=== PATIENT | female | born 1940 | race Caucasian/White ===

== ENCOUNTER 2018-08-29 07:57 | Inpatient (IN) | payer MEDICARE ==
[~2018-08-29] VITALS: Ht 160 cm; Wt 83.0 kg
[~2018-08-29 07:57] MED LIST: AMLO5TAB4 PO; ASPI-612 PO; LISI20TA PO; SIMV20TA PO
--- NOTE | 2018-08-29 08:21 | RAD ---
PQRS Compliance Statement: One or more of the following individualized dose reduction techniques were utilized for this examination: 1. Automated exposure control 2. Adjustment of the mA and/or kV according to patient size 3. Use of iterative reconstruction technique CT head without contrast 08/29/2018 7:56 AM INDICATION: Code stroke, altered mental status COMPARISON: CT head November 20, 2008, MRI brain June 13, 2014 TECHNIQUE: Multiple axial CT images of the head were obtained from skull base through the vertex without intravenous contrast. FINDINGS: Head: Ventricles, sulci and basal cisterns are prominent compatible with moderate generalized cerebral volume loss. There is no hydrocephalus. Low-attenuation in the periventricular white matter is suggestive of chronic small vessel ischemic changes. There is hypoattenuation involving the large territory of the right middle cerebral artery predominantly involving the right frontal lobe including the right frontal operculum and insula. Within this area of hypoattenuation, there is cortically based high attenuation with calcification may represent areas of laminar necrosis or prior petechial microhemorrhage. There is no acute intracranial hemorrhage. There is no mass, mass effect or midline shift. Posterior fossa is normal in appearance. Visualized portions of the orbits are normal. Paranasal sinuses are well aerated. Mastoid air cells are well aerated. Scalp and calvaria are normal. IMPRESSION: 1. There is a remote large territory of right middle cerebral artery infarct with associated dystrophic calcification which may be associated with prior microhemorrhage or laminar necrosis. Acute on chronic ischemia is a differential consideration. 2. Moderate generalized cerebral volume loss. Low-attenuation in the periventricular white matter is suggestive of chronic small vessel ischemic changes. FOR INTERNAL CODING PURPOSES Critical result: Findings discussed with JOYCE BAUM at 08/29/2018 8:17 AM. RESULT CODE: (C) Electronically signed by: Radha Kerr MD (08/29/2018 8:17 AM) [id number]
[2018-08-29 08:31] LABS: HEMATOCRIT 36.4 % (36.0-47.0); HEMOGLOBIN 11.9 g/dL (12.0-15.5); RED BLOOD COUNT 4.11 x10^6/uL (3.50-5.40); RED CELL DISTRIBUTION WIDTH 14.1 % (11.5-14.5); WHITE BLOOD COUNT 9.4 x10^3/uL (4.0-11.0)
[2018-08-29 08:41] LABS: CALCIUM 9.5 mg/dL (8.5-10.1); CREATININE 1.1 mg/dL (0.6-1.0); GFR 48.3; POTASSIUM 4.3 mmol/L (3.5-5.1)
[2018-08-29 08:42] LABS: PROTHROMBIN TIME PATIENT 14.4 SEC (11.7-14.0)
--- NOTE | 2018-08-29 09:37 | PHYS DOC ---
Past Medical History Past Medical History: Anxiety, CVA, Dementia, Hypertension, Renal Failure, UTI , Other Additional Past Medical Histor: DYSPHAGIA Past Surgical History: Other Additional Past Surgical Histo: UNKNOWN SURGICAL HISTORY Alcohol Use: None Drug Use: None Adult General Chief Complaint Chief Complaint: NEURO SYMPTOMS/DEFICITS HPI HPI 78-year-old female group home resident with previous stroke with residual left -sided weakness presents after was noted that she had slurred speech difficulty swallowing and some right arm weakness approximately 745 this morning. This was noted by group home staff as being something unusual for the patient. The patient states she has no idea why she is here. He does admit that she had some weakness on the right side which is new for her that this has since resolved according to the patient. She does state that she is still having difficulty swallowing even her own secretions. She denies any headache. Yes[] Review of Systems Review of Systems Constitutional: Denies fever or chills [] Eyes: Denies change in visual acuity, redness, or eye pain [] HENT: Denies nasal congestion or sore throat [] Respiratory: Denies cough or shortness of breath [] Cardiovascular: No additional information not addressed in HPI [] GI: Denies abdominal pain, nausea, vomiting, bloody stools or diarrhea [] : Denies dysuria or hematuria [] Musculoskeletal: Denies back pain or joint pain [] Integument: Denies rash or skin lesions [] Neurologic: Denies headache, focal weakness or sensory changes [] Endocrine: Denies polyuria or polydipsia [] All other systems were reviewed and found to be within normal limits, except as documented in this note. Current Medications Current Medications Current Medications Medications (Trade) Dose Ordered Sig/Melisa Start Time Stop Time Status Last Admin Dose Admin Sodium Chloride 1,000 ml @ 125 mls/hr Q8H 08/29/18 09:47 08/30/18 09:46 Allergies Allergies Allergies Coded Allergies Type Severity Reaction Last Updated Verified Ebdwdhi-Qji-Wmd Reductase Inhibitor Adverse Reaction Intermediate Weakness 06/14 Yes rosuvastatin Adverse Reaction Mild Stomach upset 06/14/14 Yes Physical Exam Physical Exam Constitutional: Frail, elderly acute on chronically ill but nontoxic[] HENT: Normocephalic, atraumatic, bilateral external ears normal, oropharynx moist, no oral exudates, nose normal. [] Eyes: PERRLA, EOMI, conjunctiva normal, no discharge. [] Neck: Normal range of motion, no tenderness, supple, no stridor. [] Cardiovascular:Heart rate regular rhythm, no murmur [] Lungs & Thorax: Bilateral breath sounds clear to auscultation [] Abdomen: Bowel sounds normal, soft, no tenderness, no masses, no pulsatile masses. [] Skin: Warm, dry, no erythema, no rash. [] Back: No tenderness, no CVA tenderness. [] Extremities: No tenderness, no cyanosis, no clubbing, ROM intact, no edema. [] Neurologic: Left hemiparesis, slurred speech[] Psychologic: Affect normal, judgement normal, mood normal. [] Current Patient Data Vital Signs Vital Signs Date Time Temp Pulse Resp B/P (MAP) Pulse Ox O2 Delivery O2 Flow Rate FiO2 08/29/18 07:57 97.9 88 18 146/70 (95) 94 Room Air 97.9 Lab Values Laboratory Tests Test 08/29/18 08:10 08/29/18 08:12 White Blood Count 9.4 x10^3/uL (4.0-11.0) Red Blood Count 4.11 x10^6/uL (3.50-5.40) Hemoglobin 11.9 g/dL (12.0-15.5) L Hematocrit 36.4 % (36.0-47.0) Mean Corpuscular Volume 89 fL (79-100) Mean Corpuscular Hemoglobin 29 pg (25-35) Mean Corpuscular Hemoglobin Concent 33 g/dL (31-37) Red Cell Distribution Width 14.1 % (11.5-14.5) Platelet Count 349 x10^3/uL (140-400) Prothrombin Time 14.4 SEC (11.7-14.0) H Prothrombin Time INR 1.2 (0.8-1.1) H PTT 29 SEC (24-38) Sodium Level 144 mmol/L (136-145) Potassium Level 4.3 mmol/L (3.5-5.1) Chloride Level 105 mmol/L (98-107) Carbon Dioxide Level 26 mmol/L (21-32) Anion Gap 13 (6-14) Blood Urea Nitrogen 25 mg/dL (7-20) H Creatinine 1.1 mg/dL (0.6-1.0) H Estimated GFR (Cockcroft-Gault) 48.3 Glucose Level 122 mg/dL (70-99) H Calcium Level 9.5 mg/dL (8.5-10.1) Troponin I Quantitative < 0.017 ng/mL (0.000-0.055) Glucose (Fingerstick) 109 mg/dL (70-99) H Laboratory Tests 08/29/18 08:10 Laboratory Tests 08/29/18 08:10 EKG EKG [] Interpretation Time: EKG: Normal sinus rhythm rate of [address]-T changes Radiology/Procedures Radiology/Procedures [] Impressions: PROCEDURE: CT CODE STROKE HEAD WO PQRS Compliance Statement: One or more of the following individualized dose reduction techniques were utilized for this examination: 1. Automated exposure control 2. Adjustment of the mA and/or kV according to patient size 3. Use of iterative reconstruction technique CT head without contrast 08/29/2018 7:56 AM INDICATION: Code stroke, altered mental status COMPARISON: CT head November 20, 2008, MRI brain June 13, 2014 TECHNIQUE: Multiple axial CT images of the head were obtained from skull base through the vertex without intravenous contrast. FINDINGS: Head: Ventricles, sulci and basal cisterns are prominent compatible with moderate generalized cerebral volume loss. There is no hydrocephalus. Low-attenuation in the periventricular white matter is suggestive of chronic small vessel ischemic changes. There is hypoattenuation involving the large territory of the right middle cerebral artery predominantly involving the right frontal lobe including the right frontal operculum and insula. Within this area of hypoattenuation, there is cortically based high attenuation with calcification may represent areas of laminar necrosis or prior petechial microhemorrhage. There is no acute intracranial hemorrhage. There is no mass, mass effect or midline shift. Posterior fossa is normal in appearance. Visualized portions of the orbits are normal. Paranasal sinuses are well aerated. Mastoid air cells are well aerated. Scalp and calvaria are normal. IMPRESSION: 1. There is a remote large territory of right middle cerebral artery infarct with associated dystrophic calcification which may be associated with prior microhemorrhage or laminar necrosis. Acute on chronic ischemia is a differential consideration. 2. Moderate generalized cerebral volume loss. Low-attenuation in the periventricular white matter is suggestive of chronic small vessel ischemic changes. Course & Med Decision Making Course & Med Decision Making Pertinent Labs and Imaging studies reviewed. (See chart for details) [ED course: Evaluation reveals a 78-year-old female with new neurologic deficits. She had some right sided weakness today which has since resolved however her speech is still slurred and she still having a difficult time swallowing. I spoke with the hospitalist agreed to accept patient for admission. We will admit to telemetry and consult neurology.] Dragon Disclaimer Dragon Disclaimer This electronic medical record was generated, in whole or in part, using a voice recognition dictation system. Departure Departure Impression: Primary Impression: CVA (cerebral vascular accident) Disposition: 09 ADMITTED INPATIENT Admitting Physician: Sven Cole Condition: GUARDED Referrals: NON,STAFF (PCP) Problem Qualifiers Primary Impression: CVA (cerebral vascular accident) CVA mechanism: unspecified Qualified Codes: I63.9 - Cerebral infarction, unspecified JOYCE BAUM DO Aug 29, 2018 09:37
[2018-08-29 09:56] LABS: BILIRUBIN,URINE NEGATIVE (NEG); CLARITY,URINE CLEAR; COLOR,URINE YELLOW; NITRITE,URINE NEGATIVE (NEG); PH,URINE 6.5; PROTEIN,URINE 30 mg/dL (NEG-TRACE); UROBILINOGEN,URINE 0.2 mg/dL (0.2 mg/dL)
[2018-08-29] MEDS: IV NORMAL SALINE 1000ML BAG 1,000 ML IV SCH ×2 (10:07→17:47)
[2018-08-29 10:11] LABS: SQUAMOUS EPITHELIAL CELL,UR MOD /LPF
[2018-08-29 10:13] LABS: AMORPHOUS SEDIMENT,UR PRESENT /HPF; BACTERIA,URINE FEW /HPF (0-FEW); WBC,URINE >40 /HPF (0-4)
[2018-08-29 11:05] VITALS: BP 154/77
[2018-08-29] MEDS ORDERED: ACET325T9 PO ×2 (11:31→11:55)
[2018-08-29] MEDS ORDERED: ATORVASTATIN CA80 MG PO (11:33)
[2018-08-29] MEDS ORDERED: ASPI325T8 PO (11:33)
[2018-08-29] MEDS ORDERED: MULT-697 PO (11:51)
[2018-08-29] MEDS ORDERED: POLY17PO29 PO (11:51)
[2018-08-29] MEDS ORDERED: HYDR-2867 PO ×2 (11:51)
[2018-08-29] MEDS ORDERED: NYST15PO9 TP (11:51)
[2018-08-29] MEDS ORDERED: QUET25TA5 PO (11:51)
[2018-08-29] MEDS ORDERED: NITR100C62 PO (11:51)
[2018-08-29] MEDS ORDERED: MAGN400O7 PO (11:51)
[2018-08-29] MEDS ORDERED: CARV25TA PO (11:51)
[2018-08-29] MEDS ORDERED: SENN8.6T99 PO (11:55)
[2018-08-29] MEDS ORDERED: VENL75TA PO (11:55)
--- NOTE | 2018-08-29 12:39 | EKG ---
[facility] [address] [place] [address] Test Date: 2018-08-29 Test Time: 08:52:18 Pat Name: LANI NUGENT Department: Room: [facility] Gender: F [employer]: : 1940 Requested By: JOYCE BAUM Order Number: [id number] Reading MD: Phil Pathak MD Measurements Intervals [place] Rate: 86 P: 46 [place]: 176 QRS: 7 QRSD: 82 T: 31 QT: 362 QTc: 436 Interpretive Statements SINUS RHYTHM Electronically Signed On 08-30-2018 10:46:11 CDT by Phil Pathak MD
--- NOTE | 2018-08-29 12:45 | RAD ---
EXAMINATION: Magnetic resonance imaging (MRI) of the brain and brainstem without contrast 08/29/2018 11:00 AM HISTORY: Slurred speech, left-sided weakness. TECHNIQUE: Multiplanar multi-weighted MRI of the brain and brainstem was performed without intravenous contrast using the general brain protocol. Limited evaluation due to patient discomfort. Imaging terminated prematurely with inclusion of diffusion weighted images and sagittal T1-weighted images. COMPARISON: None available. FINDINGS: There is a large area of encephalomalacia involving the right frontal lobe with T1 intrinsic signal hyperintensity suggestive of laminar necrosis. There is diffusion signal hyperintensity along the superior margin with corresponding low ADC signal. Findings are most suggestive of acute on chronic ischemia. Ventricles, sulci and basal cisterns are prominent compatible with generalized cerebral volume loss. IMPRESSION: There is acute on chronic ischemia involving the superior right frontal lobe. There is a large territory remote infarct with laminar necrosis involving the right frontal lobe. Critical results were discussed with the patient's nurse, Tammie, at 12:40 PM on 08/29/[address] Kerr. Electronically signed by: Radha Kerr MD (08/29/2018 12:42 PM) [facility]
[2018-08-29] MEDS: CLOPIDOGREL BISULFATE 75 MG TABLET PO SCH (13:00)
[2018-08-29] MEDS ORDERED: CLOPIDOGREL BISULFATE 75 MG TABLET PO ONE (13:00)
--- NOTE | 2018-08-29 13:11 | PDOC2 ---
NEUROLOGY CONSULT Date of Admission Date of Admission DATE: 08/29/18 TIME: 12:57 Reason for Consult Reason for Consult: Acute right superior frontal lobe infarct. Right UE weakness. Increased weakness in left side. Slurred speech. 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 Chronic left hemiplegia. UTI. HTN. HLD. GISELLE. Obesity. RECOMMENDATIONS/PLAN: Plavix 75 mg daily, 1st dose on 08/29/18. Statin HS. Brain MRI w/o contrast performed finding as above. Carotid A US + Doppler. Echo + Bubble study. Lab: see orders. OT/PT. Rehab. HISTORY OF THE PRESENT ILLNESS: 78-y-old female patient with longstanding history of HTN and other medical diseases had a stroke about a year ago with consequence of chronic left side hemiplegia. She stated she had another stroke afterwords with right right UE weakness. She developed symptoms of slurred speech and right side weakness after awaking in the morning today noted by her nursing facility staff to be brought to the ER of [facility]. Neurology was requested for consultation around 11:00 am and she was found to have a new stroke in the right frontal lobe this time. PAST MEDICAL HISTORY: See above. PAST SURGERY HISTORY: Hysterectomy. SOCIAL HISTORY: Denies substance abuse. REVIEW OF SYSTEMS: Constitutional: No fever, chills, malnutrition, weight loss, night sweats, cachexia. Head: No traumatic brain or head injury. Skin: No edema, or rash. Ear: No infection, tinnitus. Eyes: No vision loss, color blindness. Nose: No bleeding or purulent discharges. Neck: No injury, lymph note enlargement. Cardiac: HTN. Pulmonary: No hemoptysis, dyspnea. GI: No melena, hematochezia. Urinary/genital: UTI. Endocrinologic: Obesity. Skeletomuscular: No muscular atrophy, deformity. Neurological: see HP. Psychiatric: Denies drug use/abuse. Otherwise, not [id number] review of systems. PHYSICAL EXAMINATION: General appearance is in subacute distress. HEENT: Normocephalic and nontraumatic. Eyes, nose, ears, and throat are unremarkable. Neck is supple. No lymphadenopathy. No bruits are heard over the carotid artery. No crepitus. Cardiovascular: S1, S2, regular rate and rhythm. Pulmonary: Clear to auscultation bilaterally. Abdomen: Bowel sounds are positive. Abdomen is soft, nontender, and nondistended. Extremities: No rash, lesions, or edema. Restriction of range of motion on the left side. NEUROLOGICAL EXAMINATION: Awake. Speech seemed improved. Oriented partially to time, but knew place and person. PERRL. EOMI. CN: Left VII palsy, chronic. Muscle tone: increased in left UE and LE. Muscle strength: 2- left side. 4+ right side. DTR: 2 Plantar reflex: Extensor response in left foot. Gait: Unable to walk. Sensory exam: decreased in left side.. No cerebellar signs elicited in right hand, but unable to perform in left hand due to chronic weakness. Current Medications Current Medications Current Medications Sodium Chloride 1,000 ml @ 125 mls/hr Q8H IV Last administered on 08/29/18at 10 :07; Start 08/29/18 at 09:47; Stop 08/30/18 at 09:46 Clopidogrel Bisulfate (Plavix) 75 mg 1X ONCE PO ; Start 08/29/18 at 13:00; Stop 08/29/18 at 13:01 Clopidogrel Bisulfate (Plavix) 75 mg DAILYWBKFT PO ; Start 08/29/18 at 13:00 Active Scripts Active Norvasc (Amlodipine Besylate) 5 Mg Tablet 10 Mg PO DAILY Reported Venlafaxine Hcl 75 Mg Tablet 75 Mg PO DAILY Tylenol (Acetaminophen) 325 Mg Tablet 1 Tab PO BID Senokot (Sennosides) 8.6 Mg Tablet 1 Tab PO TID Seroquel (Quetiapine Fumarate) 25 Mg Tablet 12.5 Mg PO BID Nystatin 15 Gm Powder 1 Opal TP PRN Q12HR PRN Miralax (Polyethylene Glycol 3350) 17 Gm Powd.pack 1 Packet PO DAILY Milk Of Magnesia (Magnesium Hydroxide) 400 Mg/5 Ml Oral.susp 2,400 Mg PO PRN DAILY PRN Macrobid 100 Mg Capsule (Nitrofurantoin Monohyd/M-Cryst) 100 Mg Capsule 1 Cap PO DAILY Hydralazine Hcl 10 Mg Tablet 1 Tab PO PRN Q8HRS PRN Hydralazine Hcl 10 Mg Tablet 1 Tab PO QEVNG Centrum Adults Tablet (Multivitamin/Iron/Folic Acid) 1 Each Tablet 1 Each PO DAILY Coreg (Carvedilol) 25 Mg Tablet 25 Mg PO BIDWMEALS Atorvastatin Calcium 80 Mg Tablet 80 Mg PO HS Aspirin 325 Mg Tablet 1 Tab PO DAILY Tylenol (Acetaminophen) 325 Mg Tablet 2 Tab PO PRN Q6HRS PRN Allergies Allergies: Allergies Coded Allergies Type Severity Reaction Last Updated Verified Cdifnwa-Lxx-Mll Reductase Inhibitor Adverse Reaction Intermediate Weakness 06/14 Yes rosuvastatin Adverse Reaction Mild Stomach upset 06/14/14 Yes ROS Review of System The patient denies any associated fevers, chills, headache, ear pain, rhinorrhea , sore throat, stiff neck, productive cough, chest pain, shortness of breath, back or flank pain, abdominal pain, nausea, vomiting, diarrhea, constipation, dysuria, rash, numbness, weakness, tingling, incontinence, difficulty ambulating, or diaphoresis. Physical Exam Physical Exam General: Well developed, well nourished, no acute distress, well appearing HEENT: Pupils equally round and reactive to light, EOMI, no discharge, normal conjunctiva Neck: Supple, no nuchal rigidity, no JVD, trachea midline, no tenderness Cardiac: RRR, no murmurs, no gallops, no rubs Chest/Lungs: CTAB, no wheeze, no rhonchi, no crackles Abdomen: soft, non-distended, no guarding, no peritoneal signs, non-tender Back: No tenderness Extremities: no edema, pulses intact, non-tender,capillary refill <3 sec bilateral upper and lower extremities, Neuro: Alert and oriented x 4, no focal deficits, normal speech Vitals Vitals: Vital Signs Date Time Temp Pulse Resp B/P (MAP) Pulse Ox O2 Delivery O2 Flow Rate FiO2 08/29/18 11:05 97.7 90 20 154/77 (102) 94 Room Air 97.7 Labs Labs Laboratory Tests Test 08/29/18 08:10 08/29/18 08:12 08/29/18 08:26 White Blood Count 9.4 x10^3/uL (4.0-11.0) Red Blood Count 4.11 x10^6/uL (3.50-5.40) Hemoglobin 11.9 g/dL (12.0-15.5) Hematocrit 36.4 % (36.0-47.0) Mean Corpuscular Volume 89 fL (79-100) Mean Corpuscular Hemoglobin 29 pg (25-35) Mean Corpuscular Hemoglobin Concent 33 g/dL (31-37) Red Cell Distribution Width 14.1 % (11.5-14.5) Platelet Count 349 x10^3/uL (140-400) Prothrombin Time 14.4 SEC (11.7-14.0) Prothromb Time International Ratio 1.2 (0.8-1.1) Activated Partial Thromboplast Time 29 SEC (24-38) Sodium Level 144 mmol/L (136-145) Potassium Level 4.3 mmol/L (3.5-5.1) Chloride Level 105 mmol/L (98-107) Carbon Dioxide Level 26 mmol/L (21-32) Anion Gap 13 (6-14) Blood Urea Nitrogen 25 mg/dL (7-20) Creatinine 1.1 mg/dL (0.6-1.0) Estimated GFR (Cockcroft-Gault) 48.3 Glucose Level 122 mg/dL (70-99) Calcium Level 9.5 mg/dL (8.5-10.1) Troponin I Quantitative < 0.017 ng/mL (0.000-0.055) Glucose (Fingerstick) 109 mg/dL (70-99) Urine Collection Type Unknown Urine Color Yellow Urine Clarity Clear Urine pH 6.5 Urine Specific [place] 1.015 Urine Protein 30 mg/dL (NEG-TRACE) Urine Glucose (UA) Negative mg/dL (NEG) Urine Ketones (Stick) Negative mg/dL (NEG) Urine Blood Trace (NEG) Urine Nitrite Negative (NEG) Urine Bilirubin Negative (NEG) Urine Urobilinogen Dipstick 0.2 mg/dL (0.2 mg/dL) Urine Leukocyte Esterase Large (NEG) Urine RBC 1-2 /HPF (0-2) Urine WBC >40 /HPF (0-4) Urine Squamous Epithelial Cells Mod /LPF Urine Amorphous Sediment Present /HPF Urine Bacteria Few /HPF (0-FEW) Laboratory Tests Test 08/29/18 08:10 08/29/18 08:12 08/29/18 08:26 White Blood Count 9.4 x10^3/uL (4.0-11.0) Red Blood Count 4.11 x10^6/uL (3.50-5.40) Hemoglobin 11.9 g/dL (12.0-15.5) Hematocrit 36.4 % (36.0-47.0) Mean Corpuscular Volume 89 fL (79-100) Mean Corpuscular Hemoglobin 29 pg (25-35) Mean Corpuscular Hemoglobin Concent 33 g/dL (31-37) Red Cell Distribution Width 14.1 % (11.5-14.5) Platelet Count 349 x10^3/uL (140-400) Prothrombin Time 14.4 SEC (11.7-14.0) Prothromb Time International Ratio 1.2 (0.8-1.1) Activated Partial Thromboplast Time 29 SEC (24-38) Sodium Level 144 mmol/L (136-145) Potassium Level 4.3 mmol/L (3.5-5.1) Chloride Level 105 mmol/L (98-107) Carbon Dioxide Level 26 mmol/L (21-32) Anion Gap 13 (6-14) Blood Urea Nitrogen 25 mg/dL (7-20) Creatinine 1.1 mg/dL (0.6-1.0) Estimated GFR (Cockcroft-Gault) 48.3 Glucose Level 122 mg/dL (70-99) Calcium Level 9.5 mg/dL (8.5-10.1) Troponin I Quantitative < 0.017 ng/mL (0.000-0.055) Glucose (Fingerstick) 109 mg/dL (70-99) Urine Collection Type Unknown Urine Color Yellow Urine Clarity Clear Urine pH 6.5 Urine Specific [place] 1.015 Urine Protein 30 mg/dL (NEG-TRACE) Urine Glucose (UA) Negative mg/dL (NEG) Urine Ketones (Stick) Negative mg/dL (NEG) Urine Blood Trace (NEG) Urine Nitrite Negative (NEG) Urine Bilirubin Negative (NEG) Urine Urobilinogen Dipstick 0.2 mg/dL (0.2 mg/dL) Urine Leukocyte Esterase Large (NEG) Urine RBC 1-2 /HPF (0-2) Urine WBC >40 /HPF (0-4) Urine Squamous Epithelial Cells Mod /LPF Urine Amorphous Sediment Present /HPF Urine Bacteria Few /HPF (0-FEW) CHASE MIRELES MD Aug 29, 2018 13:11
--- NOTE | 2018-08-29 13:12 | PDOC1 ---
History and Physical Date of Admission Date of Admission DATE: 08/29/18 TIME: 13:00 Identification/Chief Complaint Chief Complaint Left-sided weakness Problems: (1) CVA (cerebral vascular accident) History of Present Illness History of Present Illness This is a 78-year-old white female who presented to the ER with left-sided weakness she has a previous history of right-sided weakness for many years patient is a poor historian. She was actually found by her halfway staff with left-sided weakness rated 9 out of 10 and she has associated anxiety. I discussed case with ER physician recommended patient consult neurology Past Medical History Past Medical History Anxiety previous stroke with right hemiplegia and dementia hypertension renal failure UTI dysphagia Cardiovascular: Other Pulmonary: Other GI: GI bleed Renal/: Chronic renal insuff Past Surgical History Past Surgical History: Hysterectomy Family History Family History: Cancer, Coronary Artery Disease, Other Social History ALCOHOL: none Drugs: None Current Problem List Problem List Problems Medical Problems: (1) CVA (cerebral vascular accident) Status: Acute Current Medications Current Medications Current Medications Sodium Chloride 1,000 ml @ 125 mls/hr Q8H IV Last administered on 08/29/18at 10 :07; Start 08/29/18 at 09:47; Stop 08/30/18 at 09:46 Clopidogrel Bisulfate (Plavix) 75 mg 1X ONCE PO ; Start 08/29/18 at 13:00; Stop 08/29/18 at 13:01 Clopidogrel Bisulfate (Plavix) 75 mg DAILYWBKFT PO ; Start 08/29/18 at 13:00 Active Scripts Active Norvasc (Amlodipine Besylate) 5 Mg Tablet 10 Mg PO DAILY Reported Venlafaxine Hcl 75 Mg Tablet 75 Mg PO DAILY Tylenol (Acetaminophen) 325 Mg Tablet 1 Tab PO BID Senokot (Sennosides) 8.6 Mg Tablet 1 Tab PO TID Seroquel (Quetiapine Fumarate) 25 Mg Tablet 12.5 Mg PO BID Nystatin 15 Gm Powder 1 Opal TP PRN Q12HR PRN Miralax (Polyethylene Glycol 3350) 17 Gm Powd.pack 1 Packet PO DAILY Milk Of Magnesia (Magnesium Hydroxide) 400 Mg/5 Ml Oral.susp 2,400 Mg PO PRN DAILY PRN Macrobid 100 Mg Capsule (Nitrofurantoin Monohyd/M-Cryst) 100 Mg Capsule 1 Cap PO DAILY Hydralazine Hcl 10 Mg Tablet 1 Tab PO PRN Q8HRS PRN Hydralazine Hcl 10 Mg Tablet 1 Tab PO QEVNG Centrum Adults Tablet (Multivitamin/Iron/Folic Acid) 1 Each Tablet 1 Each PO DAILY Coreg (Carvedilol) 25 Mg Tablet 25 Mg PO BIDWMEALS Atorvastatin Calcium 80 Mg Tablet 80 Mg PO HS Aspirin 325 Mg Tablet 1 Tab PO DAILY Tylenol (Acetaminophen) 325 Mg Tablet 2 Tab PO PRN Q6HRS PRN Allergies Allergies: Coded Allergies: Jcnnwiy-Jso-Tsy Reductase Inhibitor (Verified Adverse Reaction, Intermediate, Weakness, 06/14/14) rosuvastatin (Verified Adverse Reaction, Mild, Stomach upset, 06/14/14) ROS Review of System REVIEW OF SYSTEMS: GENERAL: Denies weakness SKIN: No bruising, hair changes or rashes. EYES: No blurred, double or loss of vision. NOSE AND THROAT: No history of nosebleeds, hoarseness or sore throat. HEART: No history of palpitations, chest pain or shortness of breath on exertion. LUNGS: Denies cough, hemoptysis, wheezing or shortness of breath. GASTROINTESTINAL: Denies changes in appetite, nausea, vomiting, diarrhea or constipation. GENITOURINARY: No history of frequency, urgency, hesitancy or nocturia. NEUROLOGIC: Complains of new left-sided weakness. PSYCHIATRIC: No history of panic, anxiety or depression. ENDOCRINE: No history of heat or cold intolerance, polyuria or polydipsia. EXTREMITIES: Denies muscle weakness, joint pain, pain on walking or stiffness. Physical Exam Physical Exam PHYSICAL EXAMINATION: VITAL SIGNS: Temperature afebrile, pulse 72, respirations 16, blood pressure 130/60, O2 sat 100%. GENERAL: She is alert, cooperative. HEART: Distant S1, S2. Without murmurs LUNGS: Clear to auscultation no rhonchi ABDOMEN: Soft. Nontender no organomegaly EXTREMITIES: No cyanosis clubbing or edema SKIN: No rashes ENDOCRINE: No thyromegaly. LYMPHATICS: Cervical or axillary nodes were noted HEMATOPOIETIC: No bruising. PSYCHIATRIC: She is stable. VASCULAR: Good capillary refill NEUROLOGICAL: She is a pleasantly confused and has left sided weakness and right hemiparesis Vitals Vitals Vital Signs Date Time Temp Pulse Resp B/P (MAP) Pulse Ox O2 Delivery O2 Flow Rate FiO2 08/29/18 11:05 97.7 90 20 154/77 (102) 94 Room Air 97.7 Labs Labs Laboratory Tests Test 08/29/18 08:10 08/29/18 08:12 08/29/18 08:26 White Blood Count 9.4 x10^3/uL (4.0-11.0) Red Blood Count 4.11 x10^6/uL (3.50-5.40) Hemoglobin 11.9 g/dL (12.0-15.5) Hematocrit 36.4 % (36.0-47.0) Mean Corpuscular Volume 89 fL (79-100) Mean Corpuscular Hemoglobin 29 pg (25-35) Mean Corpuscular Hemoglobin Concent 33 g/dL (31-37) Red Cell Distribution Width 14.1 % (11.5-14.5) Platelet Count 349 x10^3/uL (140-400) Prothrombin Time 14.4 SEC (11.7-14.0) Prothromb Time International Ratio 1.2 (0.8-1.1) Activated Partial Thromboplast Time 29 SEC (24-38) Sodium Level 144 mmol/L (136-145) Potassium Level 4.3 mmol/L (3.5-5.1) Chloride Level 105 mmol/L (98-107) Carbon Dioxide Level 26 mmol/L (21-32) Anion Gap 13 (6-14) Blood Urea Nitrogen 25 mg/dL (7-20) Creatinine 1.1 mg/dL (0.6-1.0) Estimated GFR (Cockcroft-Gault) 48.3 Glucose Level 122 mg/dL (70-99) Calcium Level 9.5 mg/dL (8.5-10.1) Troponin I Quantitative < 0.017 ng/mL (0.000-0.055) Glucose (Fingerstick) 109 mg/dL (70-99) Urine Collection Type Unknown Urine Color Yellow Urine Clarity Clear Urine pH 6.5 Urine Specific [place] 1.015 Urine Protein 30 mg/dL (NEG-TRACE) Urine Glucose (UA) Negative mg/dL (NEG) Urine Ketones (Stick) Negative mg/dL (NEG) Urine Blood Trace (NEG) Urine Nitrite Negative (NEG) Urine Bilirubin Negative (NEG) Urine Urobilinogen Dipstick 0.2 mg/dL (0.2 mg/dL) Urine Leukocyte Esterase Large (NEG) Urine RBC 1-2 /HPF (0-2) Urine WBC >40 /HPF (0-4) Urine Squamous Epithelial Cells Mod /LPF Urine Amorphous Sediment Present /HPF Urine Bacteria Few /HPF (0-FEW) Laboratory Tests Test 08/29/18 08:10 08/29/18 08:12 08/29/18 08:26 White Blood Count 9.4 x10^3/uL (4.0-11.0) Red Blood Count 4.11 x10^6/uL (3.50-5.40) Hemoglobin 11.9 g/dL (12.0-15.5) Hematocrit 36.4 % (36.0-47.0) Mean Corpuscular Volume 89 fL (79-100) Mean Corpuscular Hemoglobin 29 pg (25-35) Mean Corpuscular Hemoglobin Concent 33 g/dL (31-37) Red Cell Distribution Width 14.1 % (11.5-14.5) Platelet Count 349 x10^3/uL (140-400) Prothrombin Time 14.4 SEC (11.7-14.0) Prothromb Time International Ratio 1.2 (0.8-1.1) Activated Partial Thromboplast Time 29 SEC (24-38) Sodium Level 144 mmol/L (136-145) Potassium Level 4.3 mmol/L (3.5-5.1) Chloride Level 105 mmol/L (98-107) Carbon Dioxide Level 26 mmol/L (21-32) Anion Gap 13 (6-14) Blood Urea Nitrogen 25 mg/dL (7-20) Creatinine 1.1 mg/dL (0.6-1.0) Estimated GFR (Cockcroft-Gault) 48.3 Glucose Level 122 mg/dL (70-99) Calcium Level 9.5 mg/dL (8.5-10.1) Troponin I Quantitative < 0.017 ng/mL (0.000-0.055) Glucose (Fingerstick) 109 mg/dL (70-99) Urine Collection Type Unknown Urine Color Yellow Urine Clarity Clear Urine pH 6.5 Urine Specific [place] 1.015 Urine Protein 30 mg/dL (NEG-TRACE) Urine Glucose (UA) Negative mg/dL (NEG) Urine Ketones (Stick) Negative mg/dL (NEG) Urine Blood Trace (NEG) Urine Nitrite Negative (NEG) Urine Bilirubin Negative (NEG) Urine Urobilinogen Dipstick 0.2 mg/dL (0.2 mg/dL) Urine Leukocyte Esterase Large (NEG) Urine RBC 1-2 /HPF (0-2) Urine WBC >40 /HPF (0-4) Urine Squamous Epithelial Cells Mod /LPF Urine Amorphous Sediment Present /HPF Urine Bacteria Few /HPF (0-FEW) Images Images Ventricles, sulci and basal cisterns are prominent compatible with moderate generalized cerebral volume loss. There is no hydrocephalus. Low-attenuation in the periventricular white matter is suggestive of chronic small vessel ischemic changes. There is hypoattenuation involving the large territory of the right middle cerebral artery predominantly involving the right frontal lobe including the right frontal operculum and insula. Within this area of hypoattenuation, there is cortically based high attenuation with calcification may represent areas of laminar necrosis or prior petechial microhemorrhage. There is no acute intracranial hemorrhage. There is no mass, mass effect or midline shift. Posterior fossa is normal in appearance. VTE Prophylaxis Ordered VTE Prophylaxis Devices: Yes VTE Pharmacological Prophylaxi: No Assessment/Plan Assessment/Plan Sided weakness and a elderly female who has previous right-sided hemiparesis and old strokes. Patient is being admitted we'll consult We'll resume home medicines PT OT to evaluate and treat DVT prophylaxis full code prognosis guarded. Problem Qualifiers (1) CVA (cerebral vascular accident): CVA mechanism: unspecified Qualified Codes: I63.9 - Cerebral infarction, unspecified JAMIE HOOD III DO Aug 29, 2018 13:12
[2018-08-29 14:27] VITALS: BP 148/84
--- NOTE | 2018-08-29 15:12 | NUR ---
Patient mostly A&O x 4. Knows the president is zari, knows that she came to the hospital for stroke work up. I have educated her on the importance of keeping her heart monitor on, she continues to take it off. Will continue to encourage it being on.
[2018-08-29] MEDS ORDERED: MAGNESIUM HYDROXIDE 2,400 MG/30 ML ORAL.SUSP. PO PRN (15:30)
[2018-08-29] MEDS ORDERED: NYSTATIN TOPICAL POWDER 15GM BOTTLE. TP PRN (15:30)
[2018-08-29] MEDS ORDERED: ACETAMINOPHEN 325 MG TABLET. PO PRN (15:30)
--- NOTE | 2018-08-29 15:47 | CARD ---
MR#: [id number] Date of Study: 08/29/2018 Ordering Physician: CHASE MIRELES, Referring Physician: Zion CHONG: Osiris Baez CARLOS APPROVED REPORT EXAM: Two-dimensional and M-mode echocardiogram with Doppler and color Doppler. Other Information Quality : PoorHR: 95bpm Rhythm : NSRTechnically limited study due to body habitus. INDICATION Dyspnea 2D DIMENSIONS RVDd2.9 (2.9-3.5cm)Left Atrium(2D)3.7 (1.6-4.0cm) IVSd1.4 (0.7-1.1cm)Aortic Root(2D)1.5 (2.0-3.7cm) LVDd3.2 (3.9-5.9cm)LVOT Diameter1.9 (1.8-2.4cm) PWd1.4 (0.7-1.1cm)LVDs1.8 (2.5-4.0cm) FS (%) 43.0 %SV31.8 ml LVEF(%)75.4 (>50%) M-Mode DIMENSIONS Left Atrium(MM)3.64 (2.5-4.0cm)Aortic Root2.44 (2.2-3.7cm) Aortic Valve AoV Peak Fernando.160.9cm/Radha Peak GR.10.4mmHg LVOT VTI 14.47cm Mitral Valve MV E Isaevkko47.2cm/sMV DECEL SDTZ77to MV A Xrduazlg37.6cm/sE/A Ratio0.7 LEFT VENTRICLE The left ventricle cavity is small. There is mild to moderate concentric left ventricular hypertrophy . The left ventricle is hyperdynamic. The Ejection Fraction is >70%. There is normal LV segmental wal l motion. Transmitral Doppler flow pattern is Grade I-abnormal relaxation pattern. RIGHT VENTRICLE The right ventricle is not well visualized. The right ventricular systolic function is normal. ATRIA The left atrium size is normal. The right atrium size is normal. Interatrial septum not well visualiz ed. AORTIC VALVE The aortic valve is not well visualized. There is no significant aortic valvular stenosis. MITRAL VALVE The mitral valve is thickened but opens well. There is no evidence of mitral valve prolapse. There is no mitral valve stenosis. Evaluation of regurgitation is inadequate. TRICUSPID VALVE The tricuspid valve is not well visualized. There is no tricuspid valve stenosis. PULMONIC VALVE The pulmonic valve is not well visualized. GREAT VESSELS The aortic root is normal in size. The IVC was not visualized. PERICARDIAL EFFUSION There is no evidence of significant pericardial effusion. Critical Notification Critical Value: No <Conclusion> Technically very difficult study. The left ventricle is hyperdynamic. The Ejection Fraction is >70%. There is normal LV segmental wall motion. Transmitral Doppler flow pattern is Grade I-abnormal relaxation pattern. Valves poorly visualized and not adequately interrogated. No obvious stenosis. There is no evidence of significant pericardial effusion. Signed by : Luc Diaz, Electronically Approved : 08/29/2018 15:47:18
[2018-08-29] MEDS: POLYETHYLENE GLYCOL 3350 17 GM PACKET. PO SCH (15:56)
[2018-08-29] MEDS ORDERED: NITROFURANTOIN MONOHYD/M-CRYST 100 MG CAPSULE. PO SCH (16:00)
[2018-08-29] MEDS: ASPIRIN 325 MG TABLET PO SCH (17:02)
[2018-08-29] MEDS: VENLAFAXINE XR 37.5 MG CAP.ER.24H. PO SCH (17:03)
[2018-08-29] MEDS: CARVEDILOL 12.5 MG TABLET. PO SCH (17:07)
[2018-08-29] MEDS: hydrALAZINE 10 MG TABLET PO SCH (17:07)
[2018-08-29] MEDS: LORazepam 1 MG TABLET PO PRN (17:26)
[2018-08-29 19:44] VITALS: BP 123/54
[2018-08-29] MEDS ORDERED: hydrALAZINE 10 MG TABLET PO PRN (21:00)
[2018-08-29] MEDS: ACETAMINOPHEN 325 MG TABLET. PO SCH (21:17)
[2018-08-29] MEDS: SENNOSIDES 8.6 MG TABLET PO SCH (21:17)
[2018-08-29] MEDS: QUEtiapine 25 MG TABLET. PO SCH (21:17)
[2018-08-29] MEDS: ATORVASTATIN CALCIUM 40 MG TABLET. PO SCH (21:17)
[2018-08-29 23:37] VITALS: BP 109/50
[2018-08-30 03:56] VITALS: BP 132/65
[2018-08-30] MEDS: IV NORMAL SALINE 1000ML BAG 1,000 ML IV SCH (03:56)
[2018-08-30 07:00] VITALS: BP 132/73
[2018-08-30 07:13] LABS: CHOLESTEROL/HDL RATIO 2.8
--- NOTE | 2018-08-30 08:18 | RAD ---
Carotid ultrasound, 08/29/2018: HISTORY: CVA Duplex evaluation of the carotid arteries and neck was performed including grayscale, color-flow and spectral Doppler analysis. The study was compromised by patient motion and the patient's inability to fully cooperate. There is mild atherosclerotic plaquing in the distal common carotid arteries and at the bifurcations. The plaques are partially calcified. The peak systolic velocity in the right internal carotid artery is 90 cm per sec with an end-diastolic velocity of 21 cm/s and an internal carotid to common carotid artery ratio 1.0. On the left the peak systolic velocity in the internal carotid artery is 78 cm/s with an end-diastolic velocity of 31 cm/s and an internal carotid to common carotid artery ratio 1.0. These findings suggest luminal narrowing in the 0-50 percent diameter range. Antegrade flow was evident in the right vertebral artery. The left vertebral artery could not be visualized. This could be on a technical basis or due to occlusion. The left vertebral artery was identified on the 06/14/2014 exam. IMPRESSION: 1. Mild atherosclerotic plaquing at both carotid bifurcations with underlying luminal narrowing in the 0-50 percent diameter range bilaterally. 2. Nonvisualization of the left vertebral artery. Note: Stenosis calculations for CT, MRA and conventional angiography are based upon determination of the distal ICA diameter in accordance with the NASCET methodology. Stenosis calculations for Doppler studies are derived from validated velocity criteria which are known to correlate with NASCET methodology of determining stenosis. Electronically signed by: Kyle Anders MD (08/30/2018 8:15 AM) [facility]
[2018-08-30] MEDS: VENLAFAXINE XR 37.5 MG CAP.ER.24H. PO SCH (09:23)
[2018-08-30] MEDS: POLYETHYLENE GLYCOL 3350 17 GM PACKET. PO SCH (09:23)
[2018-08-30] MEDS: QUEtiapine 25 MG TABLET. PO SCH ×2 (09:23→20:40)
[2018-08-30] MEDS: CARVEDILOL 12.5 MG TABLET. PO SCH ×2 (09:24→16:27)
[2018-08-30] MEDS: CLOPIDOGREL BISULFATE 75 MG TABLET PO SCH (09:24)
[2018-08-30] MEDS: MULTIVITAMIN with MINERAL TABLET. PO SCH (09:24)
[2018-08-30] MEDS: SENNOSIDES 8.6 MG TABLET PO SCH ×3 (09:24→20:40)
[2018-08-30] MEDS: ASPIRIN 325 MG TABLET PO SCH (09:24)
[2018-08-30] MEDS: ACETAMINOPHEN 325 MG TABLET. PO SCH ×2 (09:25→20:40)
[2018-08-30 11:00] VITALS: BP 151/76
--- NOTE | 2018-08-30 11:14 | PDOC ---
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 SNU resident UTI, complicated Diabetes type 2, uncontrolled Moderate PCM Obese, BMI 33 Bilateral ICA stenosis/plaque buildup 0-50% History of Present Illness History of Present Illness SHe has no complaints She came in with altered mental status but is now back to baseline She does have new stroke, ischemic-started on Plavix 75 by neurology Was taking aspirin 325 in SNU She is mostly bedbound with chronic left hemiplegia from old stroke Does not report any dysphagia or difficulty swallowing Blood sugars on the high side Also incidental UTI Plan Increase nitrofurantoin to twice a day from 100 once a day Await urine cultures Echocardiogram done results pending Carotid ultrasound shows bilateral 0-50% stenosis Continue Plavix which is a new medication and will need Rx upon discharge Multi-discharge to SNU tomorrow on Plavix and UTI antibiotic, once we have urine culture results Vitals Vitals Vital Signs Date Time Temp Pulse Resp B/P (MAP) Pulse Ox O2 Delivery O2 Flow Rate FiO2 08/30/18 09:24 80 132/73 08/30/18 08:00 Room Air 08/30/18 07:00 97.6 18 91 97.6 Labs LABS Laboratory Tests Test 08/30/18 05:07 Triglycerides Level 76 mg/dL (0-150) Cholesterol Level 110 mg/dL (0-200) LDL Cholesterol, Calculated 56 mg/dL (0-100) VLDL Cholesterol, Calculated 15 mg/dL (0-40) Non-HDL Cholesterol Calculated 71 mg/dL (0-129) HDL Cholesterol 39 mg/dL (40-60) Cholesterol/HDL Ratio 2.8 Review of Systems Review of Systems A 14 point ROS was completed with the following noted as positive: Other systems reviewed and negative. \CONSTITUTIONAL: No fever or chills EYES: No recent changes SKIN: No rash or itching CARDIOVASCULAR: No chest pain, syncope, palpitations, or edema RESPIRATORY: No SOB or cough GASTROINTESTINAL: No nausea, vomiting or abdominal pain NEUROLOGICAL: No headaches or weakness ENDOCRINE: No cold or heat intolerance GENITOURINARY: No urgency or frequency of urination MUSCULOSKELETAL: No back pain or joint pain LYMPHATICS: No enlarged lymph nodes PSYCHIATRIC: No anxiety or depression Assessment and Plan Assessmemt and Plan Problems Medical Problems: (1) CVA (cerebral vascular accident) Status: Acute Comment Review of Relevant I have reviewed the following items raffaele (where applicable) has been applied. Labs Laboratory Tests Test 08/29/18 08:10 08/29/18 08:12 08/29/18 08:26 08/30/18 05:07 White Blood Count 9.4 x10^3/uL (4.0-11.0) Red Blood Count 4.11 x10^6/uL (3.50-5.40) Hemoglobin 11.9 g/dL (12.0-15.5) Hematocrit 36.4 % (36.0-47.0) Mean Corpuscular Volume 89 fL (79-100) Mean Corpuscular Hemoglobin 29 pg (25-35) Mean Corpuscular Hemoglobin Concent 33 g/dL (31-37) Red Cell Distribution Width 14.1 % (11.5-14.5) Platelet Count 349 x10^3/uL (140-400) Prothrombin Time 14.4 SEC (11.7-14.0) Prothromb Time International Ratio 1.2 (0.8-1.1) Activated Partial Thromboplast Time 29 SEC (24-38) Sodium Level 144 mmol/L (136-145) Potassium Level 4.3 mmol/L (3.5-5.1) Chloride Level 105 mmol/L (98-107) Carbon Dioxide Level 26 mmol/L (21-32) Anion Gap 13 (6-14) Blood Urea Nitrogen 25 mg/dL (7-20) Creatinine 1.1 mg/dL (0.6-1.0) Estimated GFR (Cockcroft-Gault) 48.3 Glucose Level 122 mg/dL (70-99) Calcium Level 9.5 mg/dL (8.5-10.1) Troponin I Quantitative < 0.017 ng/mL (0.000-0.055) Vitamin B12 Level 625 pg/mL (247-911) Thyroid Stimulating Hormone (TSH) 3.608 uIU/mL (0.358-3.74) Glucose (Fingerstick) 109 mg/dL (70-99) Urine Collection Type Unknown Urine Color Yellow Urine Clarity Clear Urine pH 6.5 Urine Specific [place] 1.015 Urine Protein 30 mg/dL (NEG-TRACE) Urine Glucose (UA) Negative mg/dL (NEG) Urine Ketones (Stick) Negative mg/dL (NEG) Urine Blood Trace (NEG) Urine Nitrite Negative (NEG) Urine Bilirubin Negative (NEG) Urine Urobilinogen Dipstick 0.2 mg/dL (0.2 mg/dL) Urine Leukocyte Esterase Large (NEG) Urine RBC 1-2 /HPF (0-2) Urine WBC >40 /HPF (0-4) Urine Squamous Epithelial Cells Mod /LPF Urine Amorphous Sediment Present /HPF Urine Bacteria Few /HPF (0-FEW) Triglycerides Level 76 mg/dL (0-150) Cholesterol Level 110 mg/dL (0-200) LDL Cholesterol, Calculated 56 mg/dL (0-100) VLDL Cholesterol, Calculated 15 mg/dL (0-40) Non-HDL Cholesterol Calculated 71 mg/dL (0-129) HDL Cholesterol 39 mg/dL (40-60) Cholesterol/HDL Ratio 2.8 Laboratory Tests Test 08/30/18 05:07 Triglycerides Level 76 mg/dL (0-150) Cholesterol Level 110 mg/dL (0-200) LDL Cholesterol, Calculated 56 mg/dL (0-100) VLDL Cholesterol, Calculated 15 mg/dL (0-40) Non-HDL Cholesterol Calculated 71 mg/dL (0-129) HDL Cholesterol 39 mg/dL (40-60) Cholesterol/HDL Ratio 2.8 Medications Current Medications Sodium Chloride 1,000 ml @ 100 mls/hr Q10H IV Last administered on 08/30/18 03:56; Start 08/29/18 at 09:47; Stop 08/30/18 at 09:46; Status DC Clopidogrel Bisulfate (Plavix) 75 mg 1X ONCE PO Last administered on 13:59; Start 08/29/18 at 13:00; Stop 08/29/18 at 13:01; Status DC Clopidogrel Bisulfate (Plavix) 75 mg DAILYWBKFT PO Last administered on 09:24; Start 08/29/18 at 13:00 Acetaminophen (Tylenol) 325 mg BID PO Last administered on 08/30/18 09:25; Start 08/29/18 at 21:00 Acetaminophen (Tylenol) 650 mg PRN Q6HRS PRN PO PAIN Last administered on at 17:04; Start 08/29/18 at 15:30 Aspirin (Nacho Aspirin) 325 mg DAILY PO Last administered on 08/30/18at 09:24; Start 08/29/18 at 16:00; Stop 08/30/18 at 10:54; Status DC Magnesium Hydroxide (Milk Of Magnesia) 2,400 mg PRN DAILY PRN PO CONSTIPATION; Start 08/29/18 at 15:30 Nystatin (Nystop) 1 opal PRN Q12HR PRN TP ITCHING; Start 08/29/18 at 15:30 Atorvastatin Calcium (Lipitor) 80 mg QHS PO Last administered on 08/29/18at 21: 17; Start 08/29/18 at 21:00 Carvedilol (Coreg) 25 mg BIDWMEALS PO Last administered on 08/30/18 09:24; Start 08/29/18 at 17:00 Hydralazine HCl (Apresoline) 10 mg PRN Q8HRS PRN PO HTN; Start 08/29/18 at 21: 00 Hydralazine HCl (Apresoline) 10 mg QEVNG PO Last administered on 08/29/18at 17: 07; Start 08/29/18 at 18:00 Multivitamins (Thera M Plus) 1 tab DAILY PO Last administered on 08/30/18 09: 24; Start 08/30/18 at 09:00 Nitrofurantoin Macrocrystals (Macrobid) 100 mg DAILY PO Last administered on 17:07; Start 08/29/18 at 16:00; Stop 08/30/18 at 08:42; Status DC Polyethylene Glycol (miraLAX PACKET) 17 gm DAILY PO Last administered on 09:23; Start 08/29/18 at 16:00 Quetiapine Fumarate (SEROquel) 12.5 mg BID PO Last administered on 08/30/18 09 :23; Start 08/29/18 at 21:00 Sennosides (Senna) 8.6 mg TID PO Last administered on 08/30/18 09:24; Start at 21:00 Venlafaxine HCl (Effexor Xr) 75 mg DAILY PO Last administered on 08/30/18 09: 23; Start 08/29/18 at 16:00 Lorazepam (Ativan) 1 mg PRN Q8HRS PRN PO ANXIETY / AGITATION Last administered on 08/29/18 17:26; Start 08/29/18 at 17:15 Nitrofurantoin Macrocrystals (Macrobid) 100 mg BID PO ; Start 08/30/18 at 09:00 Aspirin (Children'S Aspirin) 81 mg DAILYWBKFT PO ; Start 08/31/18 at 08:00 Active Scripts Active Norvasc (Amlodipine Besylate) 5 Mg Tablet 10 Mg PO DAILY Reported Venlafaxine Hcl 75 Mg Tablet 75 Mg PO DAILY Tylenol (Acetaminophen) 325 Mg Tablet 1 Tab PO BID Senokot (Sennosides) 8.6 Mg Tablet 1 Tab PO TID Seroquel (Quetiapine Fumarate) 25 Mg Tablet 12.5 Mg PO BID Nystatin 15 Gm Powder 1 Opal TP PRN Q12HR PRN Miralax (Polyethylene Glycol 3350) 17 Gm Powd.pack 1 Packet PO DAILY Milk Of Magnesia (Magnesium Hydroxide) 400 Mg/5 Ml Oral.susp 2,400 Mg PO PRN DAILY PRN Macrobid 100 Mg Capsule (Nitrofurantoin Monohyd/M-Cryst) 100 Mg Capsule 1 Cap PO DAILY Hydralazine Hcl 10 Mg Tablet 1 Tab PO PRN Q8HRS PRN Hydralazine Hcl 10 Mg Tablet 1 Tab PO QEVNG Centrum Adults Tablet (Multivitamin/Iron/Folic Acid) 1 Each Tablet 1 Each PO DAILY Coreg (Carvedilol) 25 Mg Tablet 25 Mg PO BIDWMEALS Atorvastatin Calcium 80 Mg Tablet 80 Mg PO HS Aspirin 325 Mg Tablet 1 Tab PO DAILY Tylenol (Acetaminophen) 325 Mg Tablet 2 Tab PO PRN Q6HRS PRN Vitals/I & O Vital Sign - Last 24 Hours 08/29/18 08/29/18 08/29/18 08/29/18 14:00 14:27 17:07 17:07 Temp 97.9 97.9 Pulse 94 94 94 Resp 18 B/P (MAP) 148/84 (105) 148/84 148/84 Pulse Ox 95 O2 Delivery Room Air Room Air 08/29/18 08/29/18 08/29/18 08/30/18 19:44 20:00 23:37 03:56 Temp 98.0 98.2 98.0 98.0 98.2 98.0 Pulse 90 74 73 Resp 20 18 18 B/P (MAP) 123/54 (77) 109/50 (69) 132/65 (87) Pulse Ox 95 90 93 O2 Delivery Room Air Room Air Room Air Room Air 08/30/18 08/30/18 08/30/18 07:00 08:00 09:24 Temp 97.6 97.6 Pulse 80 80 Resp 18 B/P (MAP) 132/73 (92) 132/73 Pulse Ox 91 O2 Delivery Room Air Room Air Intake and Output 08/29/18 08/29/18 08/30/18 15:00 23:00 07:00 Intake Total 0 ml 0 ml 0 ml Balance 0 ml 0 ml 0 ml ESVIN GARCIA MD Aug 30, 2018 11:14
[2018-08-30 15:18] VITALS: BP 141/74
--- NOTE | 2018-08-30 16:09 | NUR ---
SW following pt for anticipated dc needs. Chart reviewed and SWATI RN. INGRID confirmed with Danae pt is LTC resident at [facility]. INGRID will continue to follow.
[2018-08-30] MEDS: NITROFURANTOIN MONOHYD/M-CRYST 100 MG CAPSULE. PO SCH ×2 (16:26→20:39)
--- NOTE | 2018-08-30 19:29 | NUR ---
Spoke to Nurse at [facility], pt has received flu vaccine on 04/03/18. Updated in chart
[2018-08-30 19:44] VITALS: BP 137/66
--- NOTE | 2018-08-30 19:50 | PDOC ---
PROGRESS NOTES Assessment Assessment Acute right superior frontal lobe infarct. Metabolic encephalopathy. Right UE weakness. Increased weakness in left side. Slurred speech. 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 Chronic left hemiplegia. UTI. HTN. HLD. GISELLE. Obesity. RECOMMENDATIONS/PLAN: Continue Plavix 75 mg daily. Continue Statin HS. Treat medical diseases. OT/PT. Rehab. Brain MRI w/o contrast performed finding as above. Carotid A US + Doppler: No hemodynamically stenosis. Echo + Bubble study: Unremarkable. HISTORY OF THE PRESENT ILLNESS: 78-y-old female patient with longstanding history of HTN and other medical diseases had a stroke about a year ago with consequence of chronic left side hemiplegia. She stated she had another stroke afterwords with right right UE weakness. She developed symptoms of slurred speech and right side weakness after awaking in the morning today noted by her nursing facility staff to be brought to the ER of [facility]. Neurology was requested for consultation around 11:00 am and she was found to have a new stroke in the right frontal lobe this time. PAST MEDICAL HISTORY: See above. PAST SURGERY HISTORY: Hysterectomy. SOCIAL HISTORY: Denies substance abuse. REVIEW OF SYSTEMS: Constitutional: No fever, chills, malnutrition, weight loss, night sweats, cachexia. Head: No traumatic brain or head injury. Skin: No edema, or rash. Ear: No infection, tinnitus. Eyes: No vision loss, color blindness. Nose: No bleeding or purulent discharges. Neck: No injury, lymph note enlargement. Cardiac: HTN. Pulmonary: No hemoptysis, dyspnea. GI: No melena, hematochezia. Urinary/genital: UTI. Endocrinologic: Obesity. Skeletomuscular: No muscular atrophy, deformity. Neurological: see HP. Psychiatric: Denies drug use/abuse. Otherwise, not [id number] review of systems. PHYSICAL EXAMINATION: General appearance is in subacute distress. HEENT: Normocephalic and nontraumatic. Eyes, nose, ears, and throat are unremarkable. Neck is supple. No lymphadenopathy. No bruits are heard over the carotid artery. No crepitus. Cardiovascular: S1, S2, regular rate and rhythm. Pulmonary: Clear to auscultation bilaterally. Abdomen: Bowel sounds are positive. Abdomen is soft, nontender, and nondistended. Extremities: No rash, lesions, or edema. Restriction of range of motion on the left side. NEUROLOGICAL EXAMINATION: Drowsiness. Speech seemed improved. Oriented partially to time, but knew place and person. PERRL. EOMI. CN: Left VII palsy, chronic. Muscle tone: increased in left UE and LE. Muscle strength: 2- left side. 4+ right side. DTR: 2 Plantar reflex: Extensor response in left foot. Gait: Unable to walk. Sensory exam: decreased in left side.. No cerebellar signs elicited in right hand, but unable to perform in left hand due to chronic weakness. Objective Objective Vital Signs Date Time Temp Pulse Resp B/P (MAP) Pulse Ox O2 Delivery O2 Flow Rate FiO2 08/30/18 19:44 98.0 70 18 137/66 (89) 95 Room Air 98.0 Intake and Output 08/30/18 07:00 Intake Total 0 ml Balance 0 ml Intake Oral 0 ml # Voids 6 # Bowel Movements 2 Vitals Signs Vitals VS - Last 72 Hours, by Label Date Time Temp Pulse Resp B/P (MAP) Pulse Ox O2 Delivery O2 Flow Rate FiO2 08/30/18 19:44 98.0 70 18 137/66 (89) 95 Room Air 98.0 08/30/18 16:27 67 141/74 08/30/18 15:18 98.3 67 18 141/74 (96) 99 Room Air 98.3 08/30/18 11:00 97.4 75 18 151/76 (101) 95 Room Air 97.4 08/30/18 09:24 80 132/73 08/30/18 08:00 Room Air 08/30/18 07:00 97.6 80 18 132/73 (92) 91 Room Air 97.6 08/30/18 03:56 98.0 73 18 132/65 (87) 93 Room Air 98.0 08/29/18 23:37 98.2 74 18 109/50 (69) 90 Room Air 98.2 08/29/18 20:00 Room Air 08/29/18 19:44 98.0 90 20 123/54 (77) 95 Room Air 98.0 08/29/18 17:07 94 148/84 08/29/18 17:07 94 148/84 08/29/18 14:27 97.9 94 18 148/84 (105) 95 Room Air 97.9 08/29/18 14:00 Room Air 08/29/18 11:05 97.7 90 20 154/77 (102) 94 Room Air 97.7 08/29/18 10:30 90 18 95 08/29/18 10:00 84 18 96 08/29/18 09:30 82 14 94 08/29/18 09:00 82 16 94 08/29/18 08:30 86 14 94 08/29/18 07:57 97.9 88 18 146/70 (95) 94 Room Air 97.9 Laboratory Laboratory Laboratory Tests Test 08/30/18 05:07 Triglycerides Level 76 mg/dL (0-150) Cholesterol Level 110 mg/dL (0-200) LDL Cholesterol, Calculated 56 mg/dL (0-100) VLDL Cholesterol, Calculated 15 mg/dL (0-40) Non-HDL Cholesterol Calculated 71 mg/dL (0-129) HDL Cholesterol 39 mg/dL (40-60) Cholesterol/HDL Ratio 2.8 Medication Medications Current Medications Acetaminophen (Tylenol) 325 mg BID PO Last administered on 08/30/18 09:25; Start 08/29/18 at 21:00 Aspirin (Children'S Aspirin) 81 mg DAILYWBKFT PO ; Start 08/31/18 at 08:00 Atorvastatin Calcium (Lipitor) 80 mg QHS PO Last administered on 08/29/18at 21: 17; Start 08/29/18 at 21:00 Hydralazine HCl (Apresoline) 10 mg PRN Q8HRS PRN PO HTN; Start 08/29/18 at 21: 00 Multivitamins (Thera M Plus) 1 tab DAILY PO Last administered on 08/30/18 09: 24; Start 08/30/18 at 09:00 Nitrofurantoin Macrocrystals (Macrobid) 100 mg BID PO Last administered on 08/30 16:26; Start 08/30/18 at 09:00 Quetiapine Fumarate (SEROquel) 12.5 mg BID PO Last administered on 08/30/18 09 :23; Start 08/29/18 at 21:00 Sennosides (Senna) 8.6 mg TID PO Last administered on 08/30/18 16:26; Start at 21:00 Comment Review of Relevant I have reviewed the following items raffaele (where applicable) has been applied. CHASE MIRELES MD Aug 30, 2018 19:49
[2018-08-30] MEDS: ATORVASTATIN CALCIUM 40 MG TABLET. PO SCH (20:40)
[2018-08-30] MEDS: hydrALAZINE 10 MG TABLET PO SCH (20:40)
[2018-08-30 23:40] VITALS: BP 110/53
[2018-08-31 03:32] VITALS: BP 130/68
[2018-08-31 07:02] VITALS: BP 150/70
[2018-08-31] MEDS: VENLAFAXINE XR 37.5 MG CAP.ER.24H. PO SCH (08:44)
[2018-08-31] MEDS: NITROFURANTOIN MONOHYD/M-CRYST 100 MG CAPSULE. PO SCH ×2 (08:45→21:27)
[2018-08-31] MEDS: ASPIRIN CHEWABLE 81 MG TABLET. PO SCH (08:45)
[2018-08-31] MEDS: CARVEDILOL 12.5 MG TABLET. PO SCH ×3 (08:45→17:40)
[2018-08-31] MEDS: MULTIVITAMIN with MINERAL TABLET. PO SCH (08:45)
[2018-08-31] MEDS: SENNOSIDES 8.6 MG TABLET PO SCH ×3 (08:45→21:27)
[2018-08-31] MEDS: CLOPIDOGREL BISULFATE 75 MG TABLET PO SCH (08:46)
[2018-08-31] MEDS: ACETAMINOPHEN 325 MG TABLET. PO SCH ×2 (08:46→21:27)
[2018-08-31] MEDS: QUEtiapine 25 MG TABLET. PO SCH ×2 (08:46→21:27)
[2018-08-31] MEDS: POLYETHYLENE GLYCOL 3350 17 GM PACKET. PO SCH (08:47)
[2018-08-31] MEDS: hydrALAZINE 10 MG TABLET PO SCH ×3 (08:47→17:41)
[2018-08-31 10:24] VITALS: BP 138/72
--- NOTE | 2018-08-31 10:56 | PDOC ---
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 SNU resident UTI, complicated Diabetes type 2, uncontrolled Moderate PCM Obese, BMI 33 Bilateral ICA stenosis/plaque buildup 0-50% UTI in an SNU History of Present Illness History of Present Illness SHe has no complaints She came in with altered mental status but is now back to baseline She does have new stroke, ischemic-started on Plavix 75 by neurology Was taking aspirin 325 in SNU She is mostly bedbound with chronic left hemiplegia from old stroke Does not report any dysphagia or difficulty swallowing Blood sugars on the high side Also incidental UTI - urine cx prelim not yet avail - i called micro Plan cont nitrofurantoin to twice a day Await urine cultures Echocardiogram done- good LV Carotid ultrasound shows bilateral 0-50% stenosis Continue Plavix which is a new medication and will need Rx upon discharge Multi-discharge to SNU tomorrow on Plavix and UTI antibiotic, once we have urine culture results Vitals Vitals Vital Signs Date Time Temp Pulse Resp B/P (MAP) Pulse Ox O2 Delivery O2 Flow Rate FiO2 08/31/18 10:24 98.1 73 18 138/72 (94) 97 Room Air 98.1 Physical Exam General: Alert, Cooperative, No acute distress Heart: Regular rate, Normal S1, Normal S2 Lungs: Clear Abdomen: Normal bowel sounds, Soft, No tenderness Extremities: No clubbing, No cyanosis, No edema Skin: No rashes, No breakdown, No significant lesion Review of Systems Review of Systems A 14 point ROS was completed with the following noted as positive: Other systems reviewed and negative. \CONSTITUTIONAL: No fever or chills EYES: No recent changes SKIN: No rash or itching CARDIOVASCULAR: No chest pain, syncope, palpitations, or edema RESPIRATORY: No SOB or cough GASTROINTESTINAL: No nausea, vomiting or abdominal pain NEUROLOGICAL: No headaches or weakness ENDOCRINE: No cold or heat intolerance GENITOURINARY: No urgency or frequency of urination MUSCULOSKELETAL: No back pain or joint pain LYMPHATICS: No enlarged lymph nodes PSYCHIATRIC: No anxiety or depression Assessment and Plan Assessmemt and Plan Problems Medical Problems: (1) CVA (cerebral vascular accident) Status: Acute Comment Review of Relevant I have reviewed the following items raffaele (where applicable) has been applied. Labs Laboratory Tests Test 08/30/18 05:07 Triglycerides Level 76 mg/dL (0-150) Cholesterol Level 110 mg/dL (0-200) LDL Cholesterol, Calculated 56 mg/dL (0-100) VLDL Cholesterol, Calculated 15 mg/dL (0-40) Non-HDL Cholesterol Calculated 71 mg/dL (0-129) HDL Cholesterol 39 mg/dL (40-60) Cholesterol/HDL Ratio 2.8 Medications Current Medications Sodium Chloride 1,000 ml @ 100 mls/hr Q10H IV Last administered on 08/30/18 03:56; Start 08/29/18 at 09:47; Stop 08/30/18 at 09:46; Status DC Clopidogrel Bisulfate (Plavix) 75 mg 1X ONCE PO Last administered on at 13:59; Start 08/29/18 at 13:00; Stop 08/29/18 at 13:01; Status DC Clopidogrel Bisulfate (Plavix) 75 mg DAILYWBKFT PO Last administered on at 08:46; Start 08/29/18 at 13:00 Acetaminophen (Tylenol) 325 mg BID PO Last administered on 08/31/18 08:46; Start 08/29/18 at 21:00 Acetaminophen (Tylenol) 650 mg PRN Q6HRS PRN PO PAIN Last administered on at 17:04; Start 08/29/18 at 15:30 Aspirin (Nacho Aspirin) 325 mg DAILY PO Last administered on 08/30/18at 09:24; Start 08/29/18 at 16:00; Stop 08/30/18 at 10:54; Status DC Magnesium Hydroxide (Milk Of Magnesia) 2,400 mg PRN DAILY PRN PO CONSTIPATION; Start 08/29/18 at 15:30 Nystatin (Nystop) 1 opal PRN Q12HR PRN TP ITCHING; Start 08/29/18 at 15:30 Atorvastatin Calcium (Lipitor) 80 mg QHS PO Last administered on 08/30/18at 20: 40; Start 08/29/18 at 21:00 Carvedilol (Coreg) 25 mg BIDWMEALS PO Last administered on 08/31/18at 08:45; Start 08/29/18 at 17:00 Hydralazine HCl (Apresoline) 10 mg PRN Q8HRS PRN PO HTN; Start 08/29/18 at 21: 00 Hydralazine HCl (Apresoline) 10 mg QEVNG PO Last administered on 08/30/18 20: 40; Start 08/29/18 at 18:00 Multivitamins (Thera M Plus) 1 tab DAILY PO Last administered on 08/31/18 08: 45; Start 08/30/18 at 09:00 Nitrofurantoin Macrocrystals (Macrobid) 100 mg DAILY PO Last administered on 17:07; Start 08/29/18 at 16:00; Stop 08/30/18 at 08:42; Status DC Polyethylene Glycol (miraLAX PACKET) 17 gm DAILY PO Last administered on 08:47; Start 08/29/18 at 16:00 Quetiapine Fumarate (SEROquel) 12.5 mg BID PO Last administered on 08/31/18 08 :46; Start 08/29/18 at 21:00 Sennosides (Senna) 8.6 mg TID PO Last administered on 08/31/18 08:45; Start at 21:00 Venlafaxine HCl (Effexor Xr) 75 mg DAILY PO Last administered on 08/31/18 08: 44; Start 08/29/18 at 16:00 Lorazepam (Ativan) 1 mg PRN Q8HRS PRN PO ANXIETY / AGITATION Last administered on 08/29/18 17:26; Start 08/29/18 at 17:15 Nitrofurantoin Macrocrystals (Macrobid) 100 mg BID PO Last administered on 08/31 08:45; Start 08/30/18 at 09:00 Aspirin (Children'S Aspirin) 81 mg DAILYWBKFT PO Last administered on 08:45; Start 08/31/18 at 08:00 Active Scripts Active Norvasc (Amlodipine Besylate) 5 Mg Tablet 10 Mg PO DAILY Reported Venlafaxine Hcl 75 Mg Tablet 75 Mg PO DAILY Tylenol (Acetaminophen) 325 Mg Tablet 1 Tab PO BID Senokot (Sennosides) 8.6 Mg Tablet 1 Tab PO TID Seroquel (Quetiapine Fumarate) 25 Mg Tablet 12.5 Mg PO BID Nystatin 15 Gm Powder 1 Opal TP PRN Q12HR PRN Miralax (Polyethylene Glycol 3350) 17 Gm Powd.pack 1 Packet PO DAILY Milk Of Magnesia (Magnesium Hydroxide) 400 Mg/5 Ml Oral.susp 2,400 Mg PO PRN DAILY PRN Macrobid 100 Mg Capsule (Nitrofurantoin Monohyd/M-Cryst) 100 Mg Capsule 1 Cap PO DAILY Hydralazine Hcl 10 Mg Tablet 1 Tab PO PRN Q8HRS PRN Hydralazine Hcl 10 Mg Tablet 1 Tab PO QEVNG Centrum Adults Tablet (Multivitamin/Iron/Folic Acid) 1 Each Tablet 1 Each PO DAILY Coreg (Carvedilol) 25 Mg Tablet 25 Mg PO BIDWMEALS Atorvastatin Calcium 80 Mg Tablet 80 Mg PO HS Aspirin 325 Mg Tablet 1 Tab PO DAILY Tylenol (Acetaminophen) 325 Mg Tablet 2 Tab PO PRN Q6HRS PRN Vitals/I & O Vital Sign - Last 24 Hours 08/30/18 08/30/18 08/30/18 08/30/18 11:00 15:18 16:27 19:44 Temp 97.4 98.3 98.0 97.4 98.3 98.0 Pulse 75 67 67 70 Resp 18 18 18 B/P (MAP) 151/76 (101) 141/74 (96) 141/74 137/66 (89) Pulse Ox 95 99 95 O2 Delivery Room Air Room Air Room Air 08/30/18 08/30/18 08/30/18 08/31/18 20:00 20:40 23:40 03:32 Temp 97.6 97.9 97.6 97.9 Pulse 68 75 Resp 18 18 B/P (MAP) 137/66 110/53 (72) 130/68 (88) Pulse Ox 91 94 O2 Delivery Room Air Room Air Room Air 08/31/18 08/31/18 08/31/18 07:02 08:45 10:24 Temp 98.0 98.1 98.0 98.1 Pulse 77 77 73 Resp 16 18 B/P (MAP) 150/70 (96) 150/70 138/72 (94) Pulse Ox 97 97 O2 Delivery Room Air Room Air Intake and Output 08/30/18 08/30/18 08/31/18 15:00 23:00 07:00 Intake Total 220 ml 100 ml 0 ml Balance 220 ml 100 ml 0 ml ESVIN GARCIA MD Aug 31, 2018 10:56
--- NOTE | 2018-08-31 14:04 | NUR ---
[facility] following pt. INGRID faxed updated clinicals [facility], phone: [phone], fax: [phone]. Will continue to follow.
[2018-08-31 14:16] VITALS: BP 144/65
--- NOTE | 2018-08-31 14:22 | SNU/HH DC ---
DISCHARGE ORDERS DISCHARGE INFORMATION: DISCHARGE DATE: Aug 31, 2018 FINAL DIAGNOSIS Problems Medical Problems: (1) CVA (cerebral vascular accident) Status: Acute CONDITION ON DISCHARGE: Stable CODE STATUS: Code Status: Full ALF: SNF STAY <30 DAYS: No HOSPICE: HOSPICE: No HOSPICE EVAL & TREAT: No LTAC: ADMIT TO LTAC: No POST DISCHARGE ORDERS: ACTIVITY ORDERS: Activity as tolerated WEIGHT BEARING STATUS: As tolerated DIET AFTER DISCHARGE: Cardiac CHECKS AFTER DISCHARGE: CHECKS AFTER DISCHARGE: Check blood press - daily FOLLOW-UP: PHYSICIAN FOLLOW-UP: neuroology Dr Aparicio 4 weeks - acute CVA TREATMENT/EQUIPMENT ORDERS: ADAPTIVE EQUIPMENT NEEDED: Four wheeled walker Physical Therapy For: Evalulation/Treatment Occupational Therapy For: Evaluation/Treatment Speech Language Pathology For: Evaluation/Treatment DISCHARGE MEDICATIONS: Home Meds Active Scripts Amlodipine Besylate (NORVASC) 5 Mg Tablet, 10 MG PO DAILY for HYPERTENSION, SEE COMMENTS, #30 TAB 3 Refills Prov:MARCI CALHOUN MD 06/15/14 Reported Medications Venlafaxine Hcl (VENLAFAXINE HCL) 75 Mg Tablet, 75 MG PO DAILY for Anxiety, TAB 08/29/18 Acetaminophen (TYLENOL) 325 Mg Tablet, 1 TAB PO BID for pain, #30 TAB 08/29/18 Sennosides (SENOKOT) 8.6 Mg Tablet, 1 TAB PO TID for constipation, #40 TAB 08/29/18 Quetiapine Fumarate (SEROQUEL) 25 Mg Tablet, 12.5 MG PO BID for anxiety, #30 TAB 2 Refills 08/29/18 Nystatin (NYSTATIN) 15 Gm Powder, 1 NOHELIA TP PRN Q12HR PRN for ITCHING, #1 BOTTLE 08/29/18 Polyethylene Glycol 3350 (MIRALAX) 17 Gm Powd.pack, 1 PACKET PO DAILY for constipation, #30 PACKET 3 Refills 08/29/18 Magnesium Hydroxide (MILK OF MAGNESIA) 400 Mg/5 Ml Oral.susp, 2400 MG PO PRN DAILY PRN for CONSTIPATION, MISC 08/29/18 Nitrofurantoin Monohyd/M-Cryst (MACROBID 100 MG CAPSULE) 100 Mg Capsule, 1 CAP PO DAILY for prophylaxis, #10 CAP 08/29/18 Hydralazine Hcl (HYDRALAZINE HCL) 10 Mg Tablet, 1 TAB PO PRN Q8HRS PRN for htn, #60 TAB 3 Refills 3/26/19 Hydralazine Hcl (HYDRALAZINE HCL) 10 Mg Tablet, 1 TAB PO QEVNG for HTN, #60 TAB 3 Refills 08/29/18 Multivitamin/Iron/Folic Acid (Centrum Adults Tablet) 1 Each Tablet, 1 EACH PO DAILY for supplement, TAB 08/29/18 Carvedilol (COREG) 25 Mg Tablet, 25 MG PO BIDWMEALS for CARDIAC, TAB 08/29/18 Atorvastatin Calcium (ATORVASTATIN CALCIUM) 80 Mg Tablet, 80 MG PO HS for FOR CHOLESTEROL, #30 TAB 0 Refills 08/29/18 Aspirin (ASPIRIN) 325 Mg Tablet, 1 TAB PO DAILY for stroke, #30 TAB 5 Refills 08/29/18 Acetaminophen (TYLENOL) 325 Mg Tablet, 2 TAB PO PRN Q6HRS PRN for PAIN, #30 TAB 08/29/18 ESVIN GARCIA MD Aug 31, 2018 14:22
--- NOTE | 2018-08-31 14:24 | PDOC3 ---
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 Chronic left hemiplegia SNU resident UTI, complicated Diabetes type 2, uncontrolled Moderate PCM Obese, BMI 33 Bilateral ICA stenosis/plaque buildup 0-50% NO uTI - urine cx no growth Final Diagnosis Problems Medical Problems: (1) CVA (cerebral vascular accident) Status: Acute Brief Hospital Course Allergies Allergies Coded Allergies Type Severity Reaction Last Updated Verified Ocyajoo-Ofu-Uqd Reductase Inhibitor Adverse Reaction Intermediate Weakness 06/14 Yes rosuvastatin Adverse Reaction Mild Stomach upset 06/14/14 Yes Vital Signs Vital Signs Date Time Temp Pulse Resp B/P (MAP) Pulse Ox O2 Delivery O2 Flow Rate FiO2 08/31/18 14:16 98.7 68 19 144/65 (91) 96 Room Air 98.7 Lab Results Laboratory Tests Test 08/30/18 05:07 Triglycerides Level 76 mg/dL (0-150) Cholesterol Level 110 mg/dL (0-200) LDL Cholesterol, Calculated 56 mg/dL (0-100) VLDL Cholesterol, Calculated 15 mg/dL (0-40) Non-HDL Cholesterol Calculated 71 mg/dL (0-129) HDL Cholesterol 39 mg/dL (40-60) Cholesterol/HDL Ratio 2.8 Brief Hospital Course Ms. Sosa is a 78 old white Female SNU resident. limited mobility,admitted for new CVA, ON asa 325 at snu, added plavix. CO managed with neuro. Echo ok, Carotid neck ok. BAck to SNU, NO UTI as urine cx neg, 2 notes today Dw RN Pt seen and examined FUll code NO sxs Consults: neuro Proc; mri, carotid US< echo Discharge Information Condition at Discharge: Improved, Stable Disposition/Orders: Other (snu) Scheduled Acetaminophen (Tylenol) 325 Mg Tablet, 1 TAB PO BID for pain, #30 (Reported) Entered as Reported by: Luis Enrique Montgomery on 08/29/18 1155 Last Action: Continued on 08/29/18 1522 by SOFIA SEWELL Amlodipine Besylate (Norvasc) 5 Mg Tablet, 10 MG PO DAILY for HYPERTENSION, SEE COMMENTS, #30 Ref 3 Prescribed by: MARCI CALHOUN on 06/15/14 1127 Aspirin (Aspirin) 325 Mg Tablet, 1 TAB PO DAILY for stroke, #30 Ref 5 (Reported) Entered as Reported by: Luis Enrique Montgomery on 08/29/18 113 Last Action: Continued on 08/29/181521 by SOFIA SEWELL Atorvastatin Calcium (Atorvastatin Calcium) 80 Mg Tablet, 80 MG PO HS for FOR CHOLESTEROL, #30 Ref 0 (Reported) Entered as Reported by: Luis Enrique Montgomery on 08/29/18 113 Last Action: Converted on 08/29/181521 by SOFIA SEWELL Carvedilol (Coreg) 25 Mg Tablet, 25 MG PO BIDWMEALS for CARDIAC, (Reported) Entered as Reported by: Luis Enrique Montgomery on 08/29/18 115 Last Action: Converted on 08/29/181521 by SOFIA SEWELL Hydralazine Hcl (Hydralazine Hcl) 10 Mg Tablet, 1 TAB PO QEVNG for HTN, #60 Ref 3 (Reported) Entered as Reported by: Luis Enrique Montgomery on 08/29/181150 Last Action: Converted on 08/29/181521 by SOFIA SEWELL Multivitamin/Iron/Folic Acid (Centrum Adults Tablet) 1 Each Tablet, 1 EACH PO DAILY for supplement, (Reported) Entered as Reported by: Luis Enrique Montgomery on 08/29/18 115 Last Action: Converted on 08/29/181521 by SOFIA SEWELL Nitrofurantoin Monohyd/M-Cryst (Macrobid 100 Mg Capsule) 100 Mg Capsule, 1 CAP PO DAILY for prophylaxis, #10 (Reported) Entered as Reported by: Luis Enrique Montgomery on 08/29/181150 Last Action: Converted on 08/29/181521 by SOFIA SEWELL Polyethylene Glycol 3350 (Miralax) 17 Gm Powd.pack, 1 PACKET PO DAILY for constipation, #30 Ref 3 (Reported) Entered as Reported by: Luis Enrique Montgomery on 08/29/18 115 Last Action: Converted on 08/29/181521 by SOFIA SEWELL Quetiapine Fumarate (Seroquel) 25 Mg Tablet, 12.5 MG PO BID for anxiety, #30 Ref 2 (Reported) Entered as Reported by: Luis Enrique Montgomery on 08/29/18 115 Last Action: Converted on 08/29/181521 by SOFIA SEWELL Sennosides (Senokot) 8.6 Mg Tablet, 1 TAB PO TID for constipation, #40 (Reported ) Entered as Reported by: Luis Enrique Montgomery on 08/29/181154 Last Action: Converted on 08/29/181521 by SOFIA SEWELL Venlafaxine Hcl (Venlafaxine Hcl) 75 Mg Tablet, 75 MG PO DAILY for Anxiety, ( Reported) Entered as Reported by: Luis Enrique oMntgomery on 08/29/181154 Last Action: Converted on 08/29/181521 by SOFIA SEWELL Scheduled PRN Acetaminophen (Tylenol) 325 Mg Tablet, 2 TAB PO PRN Q6HRS PRN for PAIN, #30 ( Reported) Entered as Reported by: Luis Enrique Montgomery on 08/29/18 113 Last Action: Continued on 08/29/181521 by SOFIA SEWELL Hydralazine Hcl (Hydralazine Hcl) 10 Mg Tablet, 1 TAB PO PRN Q8HRS PRN for htn, #60 Ref 3 (Reported) Entered as Reported by: Luis Enrique Montgomery on 08/29/181150 Last Action: Converted on 08/29/181521 by SOFIA SEWELL Magnesium Hydroxide (Milk Of Magnesia) 400 Mg/5 Ml Oral.susp, 2,400 MG PO PRN DAILY PRN for CONSTIPATION, (Reported) Entered as Reported by: Luis Enrique Montgomery on 08/29/181150 Last Action: Continued on 08/29/181521 by SOFIA SEWELL Nystatin (Nystatin) 15 Gm Powder, 1 NOHELIA TP PRN Q12HR PRN for ITCHING, #1 ( Reported) Entered as Reported by: Luis Enrique Montgomery on 08/29/181150 Last Action: Continued on 08/29/181521 by ESVIN CAZARES MD Aug 31, 2018 14:24
--- NOTE | 2018-08-31 15:01 | NUR ---
[facility] following pt. Spoke with Jenni at [facility] regarding pt discharging today. Jenni reported they are not able to take pt today as they do not have enough staff. She reported they will take pt tomorrow. Orders are already faxed to facility. RN and Physician aware.
--- NOTE | 2018-08-31 16:35 | PDOC ---
PROGRESS NOTES Assessment Assessment Acute right superior frontal lobe infarct. Metabolic encephalopathy. Right UE weakness. Increased weakness in left side. Slurred speech. 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 Chronic left hemiplegia. UTI. HTN. HLD. GISELLE. Obesity. RECOMMENDATIONS/PLAN: Continue Plavix 75 mg daily. Continue Statin HS. Treat medical diseases. OT/PT. Rehab. Brain MRI w/o contrast performed finding as above. Carotid A US + Doppler: No hemodynamically stenosis. Echo + Bubble study: Unremarkable. HISTORY OF THE PRESENT ILLNESS: 78-y-old female patient with longstanding history of HTN and other medical diseases had a stroke about a year ago with consequence of chronic left side hemiplegia. She stated she had another stroke afterwords with right right UE weakness. She developed symptoms of slurred speech and right side weakness after awaking in the morning today noted by her nursing facility staff to be brought to the ER of [facility]. Neurology was requested for consultation around 11:00 am and she was found to have a new stroke in the right frontal lobe this time. PAST MEDICAL HISTORY: See above. PAST SURGERY HISTORY: Hysterectomy. SOCIAL HISTORY: Denies substance abuse. REVIEW OF SYSTEMS: Constitutional: No fever, chills, malnutrition, weight loss, night sweats, cachexia. Head: No traumatic brain or head injury. Skin: No edema, or rash. Ear: No infection, tinnitus. Eyes: No vision loss, color blindness. Nose: No bleeding or purulent discharges. Neck: No injury, lymph note enlargement. Cardiac: HTN. Pulmonary: No hemoptysis, dyspnea. GI: No melena, hematochezia. Urinary/genital: UTI. Endocrinologic: Obesity. Skeletomuscular: No muscular atrophy, deformity. Neurological: see HP. Psychiatric: Denies drug use/abuse. Otherwise, not [id number] review of systems. PHYSICAL EXAMINATION: General appearance is in subacute distress. HEENT: Normocephalic and nontraumatic. Eyes, nose, ears, and throat are unremarkable. Neck is supple. No lymphadenopathy. No bruits are heard over the carotid artery. No crepitus. Cardiovascular: S1, S2, regular rate and rhythm. Pulmonary: Clear to auscultation bilaterally. Abdomen: Bowel sounds are positive. Abdomen is soft, nontender, and nondistended. Extremities: No rash, lesions, or edema. Restriction of range of motion on the left side. NEUROLOGICAL EXAMINATION: Drowsiness. Speech improved. Oriented partially to time, but knew place and person. PERRL. EOMI. CN: Left VII palsy, chronic. Muscle tone: increased in left UE and LE. Muscle strength: 2- left side. 4+ right side. DTR: 2 Plantar reflex: Extensor response in left foot. Gait: Unable to walk. Sensory exam: decreased in left side. No cerebellar signs elicited in right hand, but unable to perform in left hand due to chronic weakness. Objective Objective Vital Signs Date Time Temp Pulse Resp B/P (MAP) Pulse Ox O2 Delivery O2 Flow Rate FiO2 08/31/18 14:16 98.7 68 19 144/65 (91) 96 Room Air 98.7 Intake and Output 08/31/18 07:00 Intake Total 320 ml Balance 320 ml Intake Oral 320 ml # Voids 5 Vitals Signs Vitals VS - Last 72 Hours, by Label Date Time Temp Pulse Resp B/P (MAP) Pulse Ox O2 Delivery O2 Flow Rate FiO2 08/31/18 14:16 98.7 68 19 144/65 (91) 96 Room Air 98.7 08/31/18 10:24 98.1 73 18 138/72 (94) 97 Room Air 98.1 08/31/18 08:45 77 150/70 08/31/18 08:00 Room Air 08/31/18 07:02 98.0 77 16 150/70 (96) 97 Room Air 98.0 08/31/18 03:32 97.9 75 18 130/68 (88) 94 Room Air 97.9 08/30/18 23:40 97.6 68 18 110/53 (72) 91 Room Air 97.6 08/30/18 20:40 137/66 08/30/18 20:00 Room Air 08/30/18 19:44 98.0 70 18 137/66 (89) 95 Room Air 98.0 08/30/18 16:27 67 141/74 08/30/18 15:18 98.3 67 18 141/74 (96) 99 Room Air 98.3 08/30/18 11:00 97.4 75 18 151/76 (101) 95 Room Air 97.4 08/30/18 09:24 80 132/73 08/30/18 08:00 Room Air 08/30/18 07:00 97.6 80 18 132/73 (92) 91 Room Air 97.6 Laboratory Laboratory Microbiology 08/29/18 Urine Culture - Final, Complete 08/29/18 Urine Culture Result 1 (JOAQUIM) - Final, Complete Medication Medications Current Medications Aspirin (Children'S Aspirin) 81 mg [id number] PO Last administered on at 08:45; Start 08/31/18 at 08:00 Comment Review of Relevant I have reviewed the following items raffaele (where applicable) has been applied. CHASE MIRELES MD Aug 31, 2018 16:35
[2018-08-31 19:10] VITALS: BP 138/67
[2018-08-31] MEDS: LORazepam 1 MG TABLET PO PRN (21:27)
[2018-08-31] MEDS: ATORVASTATIN CALCIUM 40 MG TABLET. PO SCH (21:27)
[2018-09-01 03:10] VITALS: BP 151/81
[2018-09-01 07:10] VITALS: BP 164/65
[2018-09-01] MEDS: NITROFURANTOIN MONOHYD/M-CRYST 100 MG CAPSULE. PO SCH (09:37)
[2018-09-01] MEDS: ASPIRIN CHEWABLE 81 MG TABLET. PO SCH (09:37)
[2018-09-01] MEDS: MULTIVITAMIN with MINERAL TABLET. PO SCH (09:37)
[2018-09-01] MEDS: ACETAMINOPHEN 325 MG TABLET. PO SCH (09:37)
[2018-09-01] MEDS: SENNOSIDES 8.6 MG TABLET PO SCH (09:37)
[2018-09-01] MEDS: VENLAFAXINE XR 37.5 MG CAP.ER.24H. PO SCH (09:37)
[2018-09-01] MEDS: POLYETHYLENE GLYCOL 3350 17 GM PACKET. PO SCH (09:37)
[2018-09-01] MEDS: CLOPIDOGREL BISULFATE 75 MG TABLET PO SCH (09:37)
--- NOTE | 2018-09-01 09:37 | NUR ---
SW following pt. [facility] arranged transportation for 1100 via [facility] and discussed with Jaky at [place]. Packet on chart. SW left a voice mail for pt's regarding dc plan. RN notified.
[2018-09-01] MEDS: QUEtiapine 25 MG TABLET. PO SCH (09:40)
--- NOTE | 2018-09-01 10:16 | PDOC ---
Provider Note Provider Note Patient did not DC yesterday because SNU had no staff Negative urine culture hence no UTI New stroke, Plavix added - she is on aspirin at home She is at her baseline in terms of mobility and mental function Patient seen and examined, discharge summary done yesterday, no addendum needed Discussed with RN at bedside plavix Rx on chart ESVIN GARCIA MD Sep 01, 2018 10:16
[2018-09-01 11:20] VITALS: BP 137/80
--- NOTE | 2018-09-01 12:10 | NUR ---
Patient discharged back to assisted care facility. Report called to Danae at [facility]. IV discontinued. All belongings with patient. EMS here to transport patient back to facility.
--- NOTE | 2018-09-01 12:44 | PDOC ---
PROGRESS NOTES Assessment Assessment Acute right superior frontal lobe infarct. Metabolic encephalopathy. Right UE weakness. Increased weakness in left side. Slurred speech. 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 Chronic left hemiplegia. UTI. HTN. HLD. GISELLE. Obesity. RECOMMENDATIONS/PLAN: Continue Plavix 75 mg daily. Continue Statin HS. Treat medical diseases. OT/PT. Rehab. Brain MRI w/o contrast performed finding as above. Carotid A US + Doppler: No hemodynamically stenosis. Echo + Bubble study: Unremarkable. HISTORY OF THE PRESENT ILLNESS: 78-y-old female patient with longstanding history of HTN and other medical diseases had a stroke about a year ago with consequence of chronic left side hemiplegia. She stated she had another stroke afterwords with right right UE weakness. She developed symptoms of slurred speech and right side weakness after awaking in the morning today noted by her nursing facility staff to be brought to the ER of [facility]. Neurology was requested for consultation around 11:00 am and she was found to have a new stroke in the right frontal lobe this time. PAST MEDICAL HISTORY: See above. PAST SURGERY HISTORY: Hysterectomy. SOCIAL HISTORY: Denies substance abuse. REVIEW OF SYSTEMS: Constitutional: No fever, chills, malnutrition, weight loss, night sweats, cachexia. Head: No traumatic brain or head injury. Skin: No edema, or rash. Ear: No infection, tinnitus. Eyes: No vision loss, color blindness. Nose: No bleeding or purulent discharges. Neck: No injury, lymph note enlargement. Cardiac: HTN. Pulmonary: No hemoptysis, dyspnea. GI: No melena, hematochezia. Urinary/genital: UTI. Endocrinologic: Obesity. Skeletomuscular: No muscular atrophy, deformity. Neurological: see HP. Psychiatric: Denies drug use/abuse. Otherwise, not [id number] review of systems. PHYSICAL EXAMINATION: General appearance is in subacute distress. HEENT: Normocephalic and nontraumatic. Eyes, nose, ears, and throat are unremarkable. Neck is supple. No lymphadenopathy. No bruits are heard over the carotid artery. No crepitus. Cardiovascular: S1, S2, regular rate and rhythm. Pulmonary: Clear to auscultation bilaterally. Abdomen: Bowel sounds are positive. Abdomen is soft, nontender, and nondistended. Extremities: No rash, lesions, or edema. Restriction of range of motion on the left side. NEUROLOGICAL EXAMINATION: Awake. Speech improved. Oriented partially to time, but knew place and person. PERRL. EOMI. CN: Left VII palsy, chronic. Muscle tone: Stiffness in left UE and increased in left LE. Muscle strength: 2- left side. 4+ right side. DTR: 2 Plantar reflex: Extensor response in left foot. Gait: Unable to walk. Sensory exam: decreased in left side. No cerebellar signs elicited in right hand, but unable to perform in left hand due to chronic weakness. Objective Objective Vital Signs Date Time Temp Pulse Resp B/P (MAP) Pulse Ox O2 Delivery O2 Flow Rate FiO2 09/01/18 11:20 97.4 75 18 137/80 (99) 98 Room Air 97.4 Intake and Output 09/01/18 06:59 Intake Total 1100 ml Balance 1100 ml Intake Oral 1100 ml # Voids 10 # Bowel Movements 1 Vitals Signs Vitals VS - Last 72 Hours, by Label Date Time Temp Pulse Resp B/P (MAP) Pulse Ox O2 Delivery O2 Flow Rate FiO2 09/01/18 11:20 97.4 75 18 137/80 (99) 98 Room Air 97.4 09/01/18 08:00 Room Air 09/01/18 07:10 97.4 75 18 164/65 (98) 93 Room Air 97.4 09/01/18 03:10 97.6 76 20 151/81 (104) 94 Room Air 97.6 08/31/18 23:10 20 96 Room Air 08/31/18 20:00 Room Air 08/31/18 19:10 98.6 74 20 138/67 (90) 94 Room Air 98.6 08/31/18 17:41 68 144/65 08/31/18 17:40 68 144/65 08/31/18 14:16 98.7 68 19 144/65 (91) 96 Room Air 98.7 08/31/18 10:24 98.1 73 18 138/72 (94) 97 Room Air 98.1 08/31/18 08:45 77 150/70 08/31/18 08:00 Room Air 08/31/18 07:02 98.0 77 16 150/70 (96) 97 Room Air 98.0 Laboratory Laboratory Microbiology 08/29/18 Urine Culture - Final, Complete 08/29/18 Urine Culture Result 1 (JOAQUIM) - Final, Complete Comment Review of Relevant I have reviewed the following items raffaele (where applicable) has been applied. CHASE MIRELES MD Sep 01, 2018 12:44
== END 2018-09-01 12:10 | disposition home or self-care (01) | DRG 64 ==
LOC: ER 07:57 → 6 SOUTH 09:40
PROVIDERS: ADMIT Internal Medicine; ATTEND Internal Medicine
DX: I63.9 Cerebral infarction, unspecified (principal); G93.41 Metabolic encephalopathy; E44.0 Moderate protein-calorie malnutrition; I69.351 Hemiplegia and hemiparesis following cerebral infarction affecting right dominant side; N18.9 Chronic kidney disease, unspecified; I12.9 Hypertensive chronic kidney disease with stage 1 through stage 4 chronic kidney disease, or unspecified chronic kidney disease; E78.5 Hyperlipidemia, unspecified; G47.33 Obstructive sleep apnea (adult) (pediatric); E11.65 Type 2 diabetes mellitus with hyperglycemia; E11.22 Type 2 diabetes mellitus with diabetic chronic kidney disease; E66.9 Obesity, unspecified; F03.90 Unspecified dementia, unspecified severity, without behavioral disturbance, psychotic disturbance, mood disturbance, and anxiety; F41.9 Anxiety disorder, unspecified; I65.23 Occlusion and stenosis of bilateral carotid arteries; I69.391 Dysphagia following cerebral infarction; Z68.33 Body mass index [BMI] 33.0-33.9, adult; Z79.02 Long term (current) use of antithrombotics/antiplatelets; Z82.49 Family history of ischemic heart disease and other diseases of the circulatory system; Z90.710 Acquired absence of both cervix and uterus; Z88.8 Allergy status to other drugs, medicaments and biological substances; Z74.01 Bed confinement status
CPT/HCPCS: 36415; 70450; 70551; 80048; 80061; 81001; 82607; 82962; 84443; 84484; 85027; 85610; 85730; 87086; 93005; 93306; 93880; J7030; 99285-25